=== PATIENT | male | born 1945 | race Caucasian/White ===

== ENCOUNTER 2016-05-27 09:50 | Emergency (ER) | payer MEDICARE, OTHER ==
[~2016-05-27] VITALS: Ht 182.9 cm; Wt 104.1 kg
[2016-05-27 09:52] VITALS: BP 149/106; PULSE 96; RESP 18; O2SAT 98
--- NOTE | 2016-05-27 10:05 | ED.REPORT ---
HPI-General Illness Date of Service May 27, 2016 ED Provider: Ta Verma DO The patient is a 71 year old male with history of PTSD, who presents to the emergency department complaining of shaking that began this morning. After he drank coffee this morning he noticed that his legs started jerking up and down. He was alert during the entire event and did not ever lose consciousness. When he got out of the car he noticed when he flexed his legs he noticed cramping and twitching in his upper extremities bilaterally. The shaking has stopped and at this time he only complains of lightheadedness and generalized weakness. The patient started taking Naltrexone last night to help him stop drinking. His last drink was last night. He had two "strong" drinks last night. He felt cold last night when he was trying to sleep and also noticed some lower extremity pain. He denies headache, numbness, weakness, abdominal pain or vomiting. Nursing Notes Stated Complaint: SPASMS/SEIZURES Chief Complaint: Seizure Nursing Notes Reviewed: Yes Allergies: Coded Allergies: lisinopril (Verified Allergy, Severe, cough, 05/27/16) codeine (Verified Adverse Reaction, Unknown, 05/27/16) Scheduled Bupropion (Bupropion) 100 Mg Tablet 100 MG PO QAM Prazosin (Prazosin) 5 Mg Capsule 5 MG PO HS pt has not taken for one month will start again [facility] Venlafaxine ER (Venlafaxine ER) 225 Mg Tab.er.24 225 MG PO QAM Scheduled PRN Lorazepam (Ativan) 1 Mg Tablet 1 MG PO TID PRN PRN For Spasm Miscellaneous Medications Omeprazole (Omeprazole) 40 Mg Capsule.dr 40 MG PO General Time Seen by MD: 10:02 Chief Complaint Other (shaking) Hx Obtained From: Patient Arrived By: Walk-in Sudden in Onset?: Yes Onset Occurred: 1 - 4 hours ago Symptom Duration: Intermittent Severity: Current: No pain currently Severity: Maximum: No pain Recent Healthcare: No recent hospitalization Similar Sx Previous: No Past Medical History Past Medical History PTSD Past Surgical History Cholecystectomy Family History Noncontributory Smoking History Unknown if Ever Smoker Social History Alcohol Use: In recovery Other Social History: Good social support, , Local resident Occupation Retired Ambulatory Status Independent Review of Systems Full Review of Systems Constitutional: Reports: Chills GI: Denies: Abdominal pain, Vomiting Musculoskeletal: Reports: Extremity pain Neurologic: Reports: Lightheaded, Shaking, Weakness (generally), Denies: Change LOC, Focal weakness, Headache, Numbness, Syncope Complete sys rev & neg: except as marked. Physical Exam Vital Signs Vital Signs Date Time Temp Pulse Resp B/P Pulse Ox O2 Delivery O2 Flow Rate FiO2 05/27/16 11:34 36.5 71 19 173/93 99 Room Air 05/27/16 09:52 36.3 96 18 149/106 98 Room Air Initial VS: Reviewed Head / Eyes: Atraumatic, Normocephalic, PERRL ENT: Mucous membranes moist, Conjunctiva normal, No scleral icterus Neck: Supple, Non-tender, Full range of motion Respiratory: Breath sounds normal, Clear to auscultation, No respiratory distress Cardiovascular: Regular rate & rhythm, Heart sounds normal, Intact distal pulses Lymphatic: No lymphadenopathy Extremities: Vascular intact, Neuro intact, No swelling Skin: Warm, Dry, No cyanosis Neurologic: Alert, Oriented, Nonfocal Psychiatric: Mood/affect normal, Behavior normal, Normal thought content General/Constitutional: Awake, Alert, Cooperative Upper Extremities Upper Extremity / MS: No deformity, Neurologic intact, Vascular intact Inducible muscle spasms and muscle cramps of the upper extremities with flexing his upper body. His muscles are soft. Neurovascular intact. Interpretation & Diagnostics Lab Results Interpretation Result Diagram: 05/27/16 1025 05/27/16 1025 Test 05/27/16 10:25 White Blood Count 6.9th/mm3 (3.8-10.1) Red Blood Count 4.63mil/mm3 (4.40-5.80) Hemoglobin 14.6g/dL (13.8-17.2) Hematocrit 42.9% (41.0-50.0) Mean Corpuscular Volume 92.7fL (81-100) Mean Corpuscular Hemoglobin 31.5pg (27.0-35.0) Mean Corpuscular Hemoglobin Concent 34.0% (32.0-37.0) Red Cell Distribution Width 13.7% (12.3-15.4) Platelet Count 220bil/L (150-400) Neutrophils (%) (Auto) 59.1% (40-74) Lymphocytes (%) (Auto) 26.5% (14-46) Monocytes (%) (Auto) 12.0% (4-12) Eosinophils (%) (Auto) 1.3% (0-5) Basophils (%) (Auto) 1.0% (0-3) Sodium Level 138mEq/L (134-144) Potassium Level 3.6mEq/L (3.5-5.2) Chloride Level 101mEq/L (97-108) Carbon Dioxide Level 23mmol/L (18-29) Blood Urea Nitrogen 16mg/dL (8-27) Creatinine 0.86mg/dL (0.76-1.27) Estimat Glomerular Filtration Rate 93mL/min (>59) Glucose Level 96mg/dL (60-99) Calcium Level 9.6mg/dL (8.5-10.1) Total Bilirubin 0.5mg/dL (0.0-1.2) Aspartate Amino Transf (AST/SGOT) 19U/L (0-50) Alanine Aminotransferase (ALT/SGPT) 16U/L (0-44) Alkaline Phosphatase 35U/L (25-160) Total Creatine Kinase 113U/L (21-232) Total Protein 7.2g/dL (6.4-8.4) Albumin 3.9g/dL (3.4-5.0) Re-Eval/Medical Decision Med Decision/Clinical Course Muscle spasm after starting naltrexone, lab evaluation is normal, overall this does not seem like serotonin syndrome, seizure activity, or other life-threatening pathology. Seems to respond to small dose of lorazepam. Discharge with lorazepam. Discontinue naltrexone. Call primary care doctor today for close follow-up. Return and follow-up options given. Source of Hx: Old records, Family Time of Eval: 11:13 Re-Evaluation/Progress Note: Rechecked the patient. Discussed lab results, diagnosis, and plan for discharge. All questions were addressed. Counseled Regarding: Diagnosis, Lab results, Need for follow-up, When/why to return to ED Discharge & Departure Primary Impression: Muscle cramps Disposition: Home Discharge Condition All VS Reviewed: Yes Condition: Stable Additional Instructions: Thank you for entrusting us with your care today. Your lab results are reassuring. There is no evidence of any electrolyte abnormality. You should stop taking the Naltrexone. Call Dr. Genao today to schedule a followup appointment for early next week. Use the lorazepam if the muscle cramps return. Make sure to drink plenty of fluids. Continue to work on discontinuing your alcohol use. Please return to the emergency department for any new or concerning symptoms. Referrals: Rogelio Genao MD (PCP) Scribe Attestation Portions of this note were transcribed by Chantel Boles. I, Dr. Verma personally performed the history, physical exam and medical decision-making; I reviewed and confirmed the accuracy of the information in the transcribed note. Signed by: Moshe Osei, 05/27/2016 at 1130. copies to: Rogelio Genao MD, Timothy S DO May 27, 2016 10:05 Chantel Boles May 27, 2016 10:07
[2016-05-27] MEDS ORDERED: 0.9% Sodium Chloride 1,000 ML IV ONE (10:20)
[2016-05-27] MEDS ORDERED: LORazepam 1 mg Tablet PO ONE (10:20)
[2016-05-27] MEDS ORDERED: VENL225T3 PO (10:22)
[2016-05-27] MEDS ORDERED: PRAZ5CAP3 PO (10:22)
[2016-05-27] MEDS ORDERED: BUPR100T15 PO (10:22)
[2016-05-27] MEDS ORDERED: OMEP40CA36 PO (10:22)
[2016-05-27 10:38] LABS: EOSINOPHILS % (AUTO) 1.3 % (0-5); Mean Corpuscular Hemoglobin 31.5 pg (27.0-35.0); Mean Corpuscular Volume 92.7 fL (81-100); NEUTROPHILS % (AUTO) 59.1 % (40-74); Platelet Count 220 bil/L (150-400)
[2016-05-27] MEDS ORDERED: LORA-303 PO (11:30)
[2016-05-27 11:34] VITALS: BP 173/93; PULSE 71; RESP 19; O2SAT 99
== END 2016-05-27 11:35 | disposition home or self-care (01) ==
LOC: SED 09:50
DX: R25.2 Cramp and spasm (principal); F10.10 Alcohol abuse, uncomplicated; F43.10 Post-traumatic stress disorder, unspecified; Z87.891 Personal history of nicotine dependence; Z90.49 Acquired absence of other specified parts of digestive tract; Z88.5 Allergy status to narcotic agent; Z88.8 Allergy status to other drugs, medicaments and biological substances
CPT/HCPCS: 80053; 82550; 85025; 96360; 99284; J7030